=== PATIENT | male | born 1980 | race Caucasian/White ===

== ENCOUNTER 2019-04-11 05:11 | Emergency (ER) | payer SELFPAY ==
[2019-04-11] MEDS ORDERED: Sodium Chloride 0.9% 2.5 ML Syringe FLUSH PRN (05:13)
[2019-04-11] MEDS ORDERED: Sodium Chloride 0.9% 10 ML Syringe FLUSH PRN (05:13)
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
[2019-04-11] MEDS: Nitroglycerin 0.4 MG Tab.SL SL PRN ×3 (05:44→06:03)
[2019-04-11 06:03] LABS: BLOOD UREA NITROGEN,BUN 20 mg/dL (7.0-18.0); CARBON DIOXIDE,CO2 26.3 mmol/L (21.0-32.0); CHLORIDE,CL 104 mmol/L (98-107); GLUCOSE RANDOM 101 mg/dL (74-106); LIPASE 186 U/L (73-393); POTASSIUM,K 3.8 mmol/L (3.5-5.1); SODIUM,NA 142 mmol/L (136-148)
--- NOTE | 2019-04-11 06:51 | CR ---
Indication: Chest pain Technique: Chest 1 view Comparison: None Findings/Impression: Cardiovascular and mediastinum: Heart size and vasculature are normal in caliber and appearance. Mediastinum is within normal limits. Lungs and pleural space: Lungs are clear. No sign of infiltrate or mass. No sign of pleural effusion. No pneumothorax. Bones and soft tissues: Apparent deformity of the proximal right humerus, partially seen, nonspecific. Dictated by Jhon Anaya MD @ 04/11/2019 6:48:41 AM Dictated by: Jhon Anaya MD @ 04/11/2019 06:49:17 (Electronically Signed)
== END 2019-04-11 06:55 | disposition home or self-care (01) ==
LOC: EDBD 05:11 → MW.ED 05:11
DX: R07.2 Precordial pain (principal); F17.220 Nicotine dependence, chewing tobacco, uncomplicated; Z79.82 Long term (current) use of aspirin
CPT/HCPCS: 36415; 71045; 80053; 83690; 84484; 85025; 85379; 93005; 99285; A9270; 99283